=== PATIENT | female | born 1935 | race Caucasian/White ===

== ENCOUNTER 2017-11-14 17:28 | Observation (INO) | payer MEDICARE, SELFPAY ==
[2017-11-14 17:32] VITALS: BP 192/84; PULSE 68; RESP 16; TEMP 37; BMI 20.6
--- NOTE | 2017-11-14 18:00 | CT_ITS ---
STUDY: CT BRAIN WITHOUT CONTRAST REASON FOR EXAM: Female, 82 years old. Mental status changes RADIATION DOSAGE (If Supplied By Facility): CTDIvol = ( 44.99 ) mGy, DLP = ( 745.49 ) mGycm TECHNIQUE: Transaxial CT imaging of the brain was performed without administration of intravenous contrast material. Individualized dose optimization techniques were used for this CT. COMPARISON: December 02, [address] brain FINDINGS: Normal soft tissue structures. Normal calvarium. There is moderate cerebral atrophy with widening of the extra-axial spaces and ventricular dilatation. There are areas of decreased attenuation within the white matter tracts of the supratentorial brain, consistent with microvascular disease changes. Normal basal ganglia and thalami. Normal brainstem. Normal cerebellum. There is no intracranial hemorrhage. There are no findings of an acute ischemic infarction. Normal visualized paranasal sinuses. CT/Brain/Head without Contrast IMPRESSION: Chronic involutional changes of the brain. Electronically Signed: Shukri Nieto MD at 19:30 EDT , Service support ,
[2017-11-14 18:32] LABS: Hemoglobin 11.1 g/dl (12.0-15.0); Mean Corp Hgb Conc 31.7 g/gl (32-36); Mean Corpuscular Volume 85.2 fL (81-99); Mean Platelet Vol. 9.7 fl (6.2-12.0); Platelet Count 180 K/mm3 (150-450); RBC Distribution Width CV 14.3 % (11.6-14.6); Red Blood Count 4.11 M/mm3 (4.2-5.4); White Blood Count 4.4 K/mm3 (4.4-11.0)
[2017-11-14 18:34] LABS: Scan Indicated on CBC? Y/N NO
[2017-11-14 18:45] LABS: Anion Gap 9 (5-15); BUN 8 mg/dL (7-18); BUN/Creat Ratio 10.5 RATIO (10-20); Calcium,Total 8.9 mg/dL (8.5-10.1); Chloride 106 mmol/L (98-107); Creatinine, Serum 0.76 mg/dL (0.55-1.02); EST Glomerular Filtration Rate 77 mL/min (>60); Est Glom Filt Rate - Afr Amer 93 mL/min (>60); Glucose 89 mg/dL (74-106); Potassium 4.1 mmol/L (3.5-5.1); Sodium Level 141 mmol/L (136-145)
--- NOTE | 2017-11-14 19:13 | ED.VISSUMM ---
- ER Visit Summary Date of Service: 11/14/17 Chief Complaint: Failure to thrive and court ordered half-way placement History of Present Illness: The patient is a 82 F per the patient's daughter and niece she has dementia. She is also had CAD and CT. She is cardiac stent. Reportedly she is having trouble at home. They try to put her in a half-way which I think the patient refused. They now have a court order to put her in a half-way but they need a dementia unit. He has not been ill recently. Physical Examination: A female. No acute distress. Vital signs are stable afebrile. She does not look septic or toxic. HEENT exam unremarkable. Neck nontender no lymphadenopathy. Lungs clear to auscultation bilaterally. Heart regular rate and rhythm. Abdomen soft nontender. Moving all 4 extremities. Nontender no edema. Neurologically she is awake and alert. She does not know the day of the weeks that she does not keep track of it but she does know the month, year place and vice president global digital marketing. No slurred speech. No facial droop. She is moving all 4 extremities. There is no focal deficits. Test Results: CBC shows a normal white count. Hemoglobin 11. BMP was normal with a normal creatinine and gap. CT brain shows no acute abnormality. Chronic changes. Emergency Department Course and Treatment: I will speak to the hospitalist about admission for half-way placement. Treatment Plan: [] Disposition: Admission Impression: Failure to thrive Dementia Admission for half-way placement This note was generated with angelcam dictation software. It may contain incorrect words, spelling, and punctuation that were not noted in review of the chart prior to signing ED Disposition - Plan for ED Patient: Chief Complaint: Mental Health Referrals: Cydney Larkin MD [Primary Care Provider] -
--- NOTE | 2017-11-14 19:16 | ED.DCSUM_ITS ---
- ER Visit Summary Date of Service: 11/14/17 Chief Complaint: Failure to thrive and court ordered halfway placement History of Present Illness: The patient is a 82 F per the patient's daughter and niece she has dementia. She is also had CAD and OR. She is cardiac stent. Reportedly she is having trouble at home. They try to put her in a halfway which I think the patient refused. They now have a court order to put her in a halfway but they need a dementia unit. He has not been ill recently. Physical Examination: A female. No acute distress. Vital signs are stable afebrile. She does not look septic or toxic. HEENT exam unremarkable. Neck nontender no lymphadenopathy. Lungs clear to auscultation bilaterally. Heart regular rate and rhythm. Abdomen soft nontender. Moving all 4 extremities. Nontender no edema. Neurologically she is awake and alert. She does not know the day of the weeks that she does not keep track of it but she does know the month, year place and vice president of development. No slurred speech. No facial droop. She is moving all 4 extremities. There is no focal deficits. Test Results: CBC shows a normal white count. Hemoglobin 11. BMP was normal with a normal creatinine and gap. CT brain shows no acute abnormality. Chronic changes. Emergency Department Course and Treatment: I will speak to the hospitalist about admission for halfway placement. Treatment Plan: [] Disposition: Admission Impression: Failure to thrive Dementia Admission for halfway placement This note was generated with Earthmill dictation software. It may contain incorrect words, spelling, and punctuation that were not noted in review of the chart prior to signing ED Disposition - Plan for ED Patient: Chief Complaint: Mental Health Referrals: Cydney Larkin MD [Primary Care Provider] -
[2017-11-14 19:25] VITALS: BP 118/95; PULSE 72; RESP 18; TEMP 37.1; O2SAT 96
[2017-11-14 20:24] VITALS: BP 118/95; PULSE 72; RESP 18; TEMP 37.1; O2SAT 96
[2017-11-14 20:35] VITALS: BP 209/83; PULSE 63; RESP 18; O2SAT 95
--- NOTE | 2017-11-14 20:39 | ED.RN ---
DR. BOND AWARE OF PATIENT'S BP OF 209/86 PRIOR TO COMING TO THE FLOOR. PATIENT IS VERY UPSET SO THIS COULD CONTRIBUTE TO BP.
[2017-11-14 21:04] VITALS: BMI 19.1
--- NOTE | 2017-11-14 22:21 | HP.PCM_ITS ---
Problem List (1) Dementia Status: Acute Qualifiers: Dementia type: Alzheimer's disease Alzheimer's disease onset: unspecified onset Dementia behavioral disturbance: without behavioral disturbance Qualified Code(s): G30.9 - Alzheimer's disease, unspecified; F02.80 - Dementia in other diseases classified elsewhere without behavioral disturbance History of Present Illness Date of Admission: 11/14/17 Chief Complaint: Dementia The patient is a 82 year old F who was brought to the emergency room [facility] for placement into a prison facility due to dementia. This is a court order placement, patient was not able to get into a chcf without dementia facilities and so she was brought to the emergency room for admission to the hospital for placement. Patient's niece who is her POA, need her to the hospital, patient is confused and review of systems was not obtainable from the patient due to her dementia. Evaluation in the emergency room included routine labs which were unremarkable except for hemoglobin of 11.1, patient has CT of the brain which showed chronic involutional changes. Hospitalist service was called to admit the patient for placement to a nursing facility that has a dementia unit. 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 TECHNICIAN history Lives: Alone Smoking Status: Current every day smoker Tobacco Use: Cigarettes Alcohol: None Drugs: None - *Family History Maternal History Items: Heart Disease Paternal History Items: Cancer - Testicular cancer Review of Systems Comment: review of systems was unobtainable from the patient due to her dementia , information was obtained from the patient's POA who is in the room during the time of my examination VTE Information - Inpt Only VTE Present on Admission: No VTE Mechan Device Prophylaxis: None VTE Pharm Prophylaxis ordered?: Yes Patient Problems: Active and Suspected Problems Dementia (Acute) - Physical Exam General: Alert, No apparent distress, Well developed, Well nourished, Confused HEENT: Atraumatic, PERRLA, EOMI Oral: Moist Mucosa Neck: Supple, No JVD, Negative Carotid Bruits, No Nuchal Rigidity, Trachea Midline, Thyroid Normal Size and Texture Lungs: Clear to auscultation, Normal air movement, No rhonchi, No wheeze, No rales Cardiovascular: Regular rate, Regular Rhythm, Normal S1, Normal S2, No murmurs, No Ectopic Activity, PMI Normal, No rub noted, No Gallop Abdomen: Bowel Sounds Present, Soft, Non Tender, Non-Distended, No hernias noted Extremities: No clubbing, No cyanosis, No edema, Capillary Refill Less than 3 Seconds Skin: No rashes, No breakdown Neurological: Cranial nerves II-XII grossly intact, Neuro grossly intact, Muscle tone normal, Sensory exam intact to light touch and pain Psych/Mental Status: Delusions, - - Patient is alert but confused Vital Signs Temp Pulse Resp BP Pulse Ox 98.8 F 63 18 209/83 H 95 11/14/17 20:24 11/14/17 20:35 11/14/17 20:35 11/14/17 20:35 11/14/17 20:35 Oxygen Delivery Method Room Air Weight: 50.4 kg Body Mass Index (BMI) 19.1 Assessment/Plan Active and Suspected Problems Dementia (Acute) #1 Alzheimer's dementia-patient requires hospitalization for placement in a ch[facility], [facility] will be [facility], arrangements will be made by public health social worker for placement to a nursing facility that has a dementia unit #2 coronary artery disease #3 overactive bladder Code Visit OBSV E&M: 87409 Initial observation care L3
[2017-11-15 07:18] VITALS: BP 118/59; PULSE 74; RESP 16; TEMP 36.8; O2SAT 100
[2017-11-15] MEDS: Heparin Injection (Vial) 5,000 UNIT/ML VIAL 5000 UNIT SC (07:30)
--- NOTE | 2017-11-15 07:33 | PCM.PROGNOTE ---
Patient Problems: Active and Suspected Problems Dementia (Acute) Subjective: Patient is an 82-year-old female with a past medical history of dementia, tobacco dependence, personality disorder, CAD, COPD and hypertension who tented to the emergency department at [facility] on 11/14/2017 to be placed in a half-way with dementia wing. This is a court ordered placement. Vital signs at presentation to the emergency room are temperature 98.6, pulse rate 68, blood pressure 192/84, respiratory rate 16 and she was 96% saturated on room air. Lab was remarkable for a mildly decreased hemoglobin at 11.1 with normochromic normocytic indices and a normal RDW. CT brain showed no acute findings. There are chronic involutional changes. She is afebrile. Her pressure is somewhat erratic and ranges from 118/59 to 209/83. She is 100% saturated on room air today. She is intermittently agitated. Appears to be in no distress other than being agitated. She is very confused and can not even tell me where she is. - Physical Exam General: Alert, No apparent distress, Well developed, Confused HEENT: Atraumatic, PERRLA, EOMI, Normocephalic, - - ? mild exopthalmus Oral: Moist Mucosa Neck: Supple, No JVD, No Nodes, No Nuchal Rigidity, Trachea Midline Lungs: Clear to auscultation, No rhonchi, No wheeze, No rales Cardiovascular: Regular rate, Regular Rhythm, Normal S1, Normal S2, No rub noted, No Gallop Abdomen: Bowel Sounds Present, Soft, Non Tender, Non-Distended, - - No guarding with palpation and no grimacing Extremities: No clubbing, No cyanosis, No edema Skin: No rashes, No breakdown Neurological: Cranial nerves II-XII grossly intact, Neuro grossly intact - She is moving all extremities. she is able to follow simple commands. Oriented to person only. Psych/Mental Status: Agitated Vital Signs Temp Pulse Resp BP Pulse Ox 98.3 F 74 16 118/59 L 100 11/15/17 07:18 11/15/17 07:18 11/15/17 07:18 11/15/17 07:18 11/15/17 07:18 Oxygen Delivery Method Room Air Weight: 111 lb 1.808 oz Body Mass Index (BMI) 19.1 Intake and Output for Last 24 Hours 11/13/17 11/14/17 11/15/17 23:59 23:59 23:59 Intake Total 440 / 440 Balance 440 / 440 Medical Necessity - Tobacco Use Smoking Status: Current every day smoker Tobacco Use: Cigarettes Assessment/Plan Active and Suspected Problems Dementia (Acute) Impressions 1. dementia with behavioral disturbance - have not received the paperwork from her niece who is the POA stating that there is a court order to place her. Will initiate W/U to rule out the treatable causes of dementia 2. Personality disorder? or does she have another psychiatric diagnosis....will need to talk with her niece. Will get a geropsych consult 3. ? exopthalmus - check thyroid studies 4. Dysuria - UA ordered and the urine was obtained via straight cath 5. Tobacco dependence 6. CAD 7. COPD 8. N/N anemia with a nl RDW Discussed with the SW and geropsych will see her in the AM Niece is bringing in the paperwork for court ordered placement Start Seroquel 25 Q AM and 50 Q HS PRN Haldol for severe agitation TSH, B12, RPR, BRODERICK to rule out treatable causes of dementia Recheck lab in the AM Code Visit Inpatient E&M: 74806 Subs Hosp L2
--- NOTE | 2017-11-15 07:37 | PN_ITS ---
Patient Problems: Active and Suspected Problems Dementia (Acute) Subjective: Patient is an 82-year-old female with a past medical history of dementia, tobacco dependence, personality disorder, CAD, COPD and hypertension who tented to the emergency department at [facility] on 11/14/2017 to be placed in a intermediate with dementia wing. This is a court ordered placement. Vital signs at presentation to the emergency room are temperature 98.6, pulse rate 68, blood pressure 192/84, respiratory rate 16 and she was 96% saturated on room air. Lab was remarkable for a mildly decreased hemoglobin at 11.1 with normochromic normocytic indices and a normal RDW. CT brain showed no acute findings. There are chronic involutional changes. She is afebrile. Her pressure is somewhat erratic and ranges from 118/59 to 209 /83. She is 100% saturated on room air today. She is intermittently agitated. Appears to be in no distress other than being agitated. She is very confused and can not even tell me where she is. - Physical Exam General: Alert, No apparent distress, Well developed, Confused HEENT: Atraumatic, PERRLA, EOMI, Normocephalic, - - ? mild exopthalmus Oral: Moist Mucosa Neck: Supple, No JVD, No Nodes, No Nuchal Rigidity, Trachea Midline Lungs: Clear to auscultation, No rhonchi, No wheeze, No rales Cardiovascular: Regular rate, Regular Rhythm, Normal S1, Normal S2, No rub noted , No Gallop Abdomen: Bowel Sounds Present, Soft, Non Tender, Non-Distended, - - No guarding with palpation and no grimacing Extremities: No clubbing, No cyanosis, No edema Skin: No rashes, No breakdown Neurological: Cranial nerves II-XII grossly intact, Neuro grossly intact - She is moving all extremities. she is able to follow simple commands. Oriented to person only. Psych/Mental Status: Agitated Vital Signs Temp Pulse Resp BP Pulse Ox 98.3 F 74 16 118/59 L 100 11/15/17 07:18 11/15/17 07:18 11/15/17 07:18 11/15/17 07:18 11/15/17 07:18 Oxygen Delivery Method Room Air Weight: 111 lb 1.808 oz Body Mass Index (BMI) 19.1 Intake and Output for Last 24 Hours 11/13/17 11/14/17 11/15/17 23:59 23:59 23:59 Intake Total 440 / 440 Balance 440 / 440 Medical Necessity - Tobacco Use Smoking Status: Current every day smoker Tobacco Use: Cigarettes Assessment/Plan Active and Suspected Problems Dementia (Acute) Impressions 1. dementia with behavioral disturbance - have not received the paperwork from her niece who is the POA stating that there is a court order to place her. Will initiate W/U to rule out the treatable causes of dementia 2. Personality disorder? or does she have another psychiatric diagnosis....will need to talk with her niece. Will get a geropsych consult 3. ? exopthalmus - check thyroid studies 4. Dysuria - UA ordered and the urine was obtained via straight cath 5. Tobacco dependence 6. CAD 7. COPD 8. N/N anemia with a nl RDW Discussed with the SW and geropsych will see her in the AM Niece is bringing in the paperwork for court ordered placement Start Seroquel 25 Q AM and 50 Q HS PRN Haldol for severe agitation TSH, B12, RPR, BRODERICK to rule out treatable causes of dementia Recheck lab in the AM Code Visit Inpatient E&M: 99285 Subs Hosp L2
[2017-11-15 08:51] VITALS: BP 175/97; PULSE 88; RESP 18; TEMP 36.8; O2SAT 93
[2017-11-15 08:53] VITALS: PULSE 100
--- NOTE | 2017-11-15 12:00 | CASEMGMT ---
Addendum entered by Syeda Mehta 11/15/17 12:56: HUGO received call from Brandt [phone] at [facility] asking about pt. HUGO informed her of pt's admit into hospital and that [facility] has been consulted. HUGO will continue to update Brandt when updates are available. Original Note: Social Work Note Per ED note pt came into the hospital last night after refusing to be placed at a nursing facility. Per ED notes pt's niece is POA and there is a court order that pt needs to be placed. It should be noted that at this time, the court order has not been physically brought into the hospital yet. Charge Nurse Dee states that the ED was recommending that pt be seen by [facility]. HUGO spoke with Dr. Ortega and she is agreeable to pt being seen by [facility] for evaluation. HUGO placed call to pt's niece Michaela asking if pt could been seen by [facility]. Michaela, pt's niece, POA gave approval for pt to be seen by [facility]. HUGO verbally gave Michaela list of [facility] units and per Michaela, the closest facility to [place] is the one that she would like this worker to try. HUGO also encouraged Michaela to bring in a copy of the court order to the hospital. Michaela states that she will bring in the court order. [facility] in [place] is about an hour from [place] and the closest. HUGO placed call to Lizbeth Longoria and left a message regarding referral. HUGO left message for Lizbeth asking if someone could come evaluate pt. HUGO is waiting for call back from Lizbeth to see if pt can be evaluated. Plan: TBD, possible placement at [facility] Syeda Mehta TOLL TEST WORKER, OPERATIONAL METEOROLOGIST
[2017-11-15 14:12] VITALS: BP 157/75; PULSE 80; RESP 18; TEMP 37.2; O2SAT 96
[2017-11-15] MEDS: Haloperidol Lactate 5 MG/ML Vial 4 MG IM (16:26)
--- NOTE | 2017-11-15 17:14 | CASEMGMT ---
Addendum entered by Syeda Mehta 11/15/17 17:37: HUGO informed Charge Nurse Dee that pt's niece is suppose to be coming into the hospital tonight and to remind her that the hospital needs the court order, guardianship and POA papers. Original Note: Social Work Note HUGO didn't hear back from Lizbeth with [facility]. HUGO called [facility] and got the number for Elli [phone]. HUGO placed call to [place] and got Desire who states that Elli's phone is forwarded to her. HUGO gave referral to Desire. Desire states that she will call pt's niece to confirm that she is ok with the referral. HUGO received call back from Desire with [facility] stating that the niece is ok with referral and that the niece would like to meet with [facility], this SW and pt tomorrow to discuss discharge options. Desire states that the meeting is set for 9:00am tomorrow. HUGO placed call to pt's niece Michaela who was unable to answer. HUGO informed front counter attendant that if pt's niece Michaela shows up to confirm that she needs to bring court order paperwork, guardianship papers, POA papers to hospital. Plan: TBD, pt meeting with [facility] tomorrow Syeda Mehta CANDY CUTTER HAND, EQUIPMENT SUPERINTENDENT
[2017-11-15 17:35] LABS: Mucous, Urine 0 SEEN /hpf (<or=2+)
--- NOTE | 2017-11-15 17:37 | PCA ---
katie brought her legal paper work in. Made copies and placed in chart.
[2017-11-15 18:12] LABS: Color, Urine Straw (Yellow); Glucose, Dipstick Normal (Normal); Ketone-Dipstick Negative (Negative); Leukocyte Esterase-Dipstick 500 /ul (Negative); Nitrite-Dipstick Positive (Negative); Occult Blood-Urine 25 /ul (Negative); Protein-Dipstick Negative (Negative); Specific Gravity, Urine 1.005 (1.002-1.030); Urine Bilirubin Dipstick Negative (Negative); Urine Clarity Cloudy (Clear); Urine Urobilinogen Normal (Normal)
[2017-11-15 18:36] LABS: Squamous Epithelial Cells - UA 0-5 SEEN /hpf (5-10)
[2017-11-15 18:37] LABS: Bacteria 2+ /hpf (None Seen)
[2017-11-15 18:39] LABS: Red Blood Cells-Urine 0-5 SEEN /hpf (0-5)
[2017-11-15 18:40] LABS: White Blood Cells 5-10 SEEN /hpf (0-5)
[2017-11-15 19:21] LABS: Free T3 2.8 pg/mL (2.18-3.98); T4 Total, Thyroxin 8.9 ug/dL (4.8-13.9); Thyroid Stim Hormone (TSH) 1.44 uIU/mL (0.358-3.74)
[2017-11-15 22:00] VITALS: BP 152/82; PULSE 89; RESP 16; TEMP 36.7; O2SAT 97
[2017-11-15] MEDS: QUEtiapine 25 MG Tablet 50 MG PO (22:22)
[2017-11-16 04:00] VITALS: BP 159/75; PULSE 99; RESP 16; TEMP 36.6; O2SAT 95
[2017-11-16 05:02] LABS: Rapid Plasmin Reagin (RPR) NONREACTIVE (NONREACTIVE)
--- NOTE | 2017-11-16 05:55 | EKG12_ITS ---
Test Reason : ABNORMAL EKG Blood Pressure : / mmHG Vent. Rate : 075 BPM Atrial Rate : 075 BPM P-R Int : 144 ms QRS Dur : 074 ms QT Int : 384 ms P-R-T Axes : 075 073 066 degrees QTc Int : 428 ms Normal sinus rhythm Normal ECG When compared with ECG of 03-DEC-2012 05:00, No significant change was found Confirmed by YVES HARPER ([id number]), desk editor ELEANOR HAM ([id number]) on 11/27/2017 4:14:56 PM Referred By: NERY Confirmed By:YVES HARPER
[2017-11-16 06:13] LABS: Absolute Lymphocyte Count 1.29 X10^3/ul (0.83-4.51); Absolute Neutrophil Count 2.2 X10^3/uL (2.0-7.7); Basophil# 0.01 X10^3/uL; Basophil% 0.2 % (0-1); Eosinophil# 0.21 X10^3/uL; Eosinophils% 5.1 % (0-5); Hematocrit 34.1 % (37-47); Hemoglobin 10.8 g/dl (12.0-15.0); Lymphocyte # 1.29 X10^3/ul (4.0); Lymphocyte % 31.3 % (19-41); Mean Corp Hgb Conc 31.7 g/gl (32-36); Mean Corpuscular Volume 85.3 fL (81-99); Mean Platelet Vol. 9.5 fl (6.2-12.0); Monocyte# 0.43 X10^3/uL; Monocyte% 10.4 % (0-10); Neutrophil # 2.18 X10^3/uL (2.7-7.7); Platelet Count 164 K/mm3 (150-450); RBC Distribution Width CV 14.2 % (11.6-14.6); RBC Distribution Width SD 44.6 fl (35.1-43.9); White Blood Count 4.1 K/mm3 (4.4-11.0)
[2017-11-16 06:14] LABS: POSITIVE COUNT NO; POSITIVE DIFFERENTIAL NO; POSITIVE MORPHOLOGY NO
[2017-11-16 06:26] LABS: ALB/GLOB Ratio 1.2 RATIO (0.9-2.4); AST(SGOT) 18 U/L (15-37); Alanine Aminotransfer ALT/SGPT 9 U/L (13-56); Albumin, Serum 3.3 g/dL (3.2-5.0); Alkaline Phosphatase 76 U/L (45-117); Anion Gap 8 (5-15); BUN 6 mg/dL (7-18); BUN/Creat Ratio 9.1 RATIO (10-20); Calcium,Total 8.6 mg/dL (8.5-10.1); Chloride 105 mmol/L (98-107); Creatinine, Serum 0.66 mg/dL (0.55-1.02); EST Glomerular Filtration Rate 91 mL/min (>60); Est Glom Filt Rate - Afr Amer 110 mL/min (>60); Estimated Creatinine Clearance 33.92 ml/min; Globulin 2.7 g/dL (2.2-4.2); Glucose 83 mg/dL (74-106); Phosphorus 3.6 mg/dL (2.5-4.9); Potassium 3.6 mmol/L (3.5-5.1); Sodium Level 140 mmol/L (136-145)
--- NOTE | 2017-11-16 06:52 | PCM.PROGNOTE ---
Patient Problems: Active and Suspected Problems Dementia (Acute) Subjective: Afebrile, vital signs stable. The blood pressure is mildly increased but the patient refused metoprolol. She has been refusing many of her medications but did agree to take 50 mg of Seroquel at at bedtime. Lab today shows a hemoglobin of 10.8 which is stable, white blood cell count of 4.1 and normal platelets. Electrolytes are within normal limits and the BUN is 6 with a creatinine of 0.66. LFTs are unremarkable. TSH, T4 and T3 are within normal limits. B12 is pending. RPR is negative. BRODERICK is pending. The urine analysis showed 5-10 white blood cells and was nitrite positive. Culture is pending. Only required Haldol once yesterday. Disha to evaluate today. - Physical Exam Vital Signs Temp Pulse Resp BP Pulse Ox 97.9 F 99 16 159/75 H 95 11/16/17 04:00 11/16/17 04:00 11/16/17 04:00 11/16/17 04:00 11/16/17 04:00 Oxygen Delivery Method Room Air Weight: 111 lb 1.808 oz Body Mass Index (BMI) 19.1 Intake and Output for Last 24 Hours 11/14/17 11/15/17 11/16/17 23:59 23:59 23:59 Intake Total 440 / 440 580 / 580 Balance 440 / 440 580 / 580 Laboratory Tests Past 24 Hrs 11/15/17 11/15/17 11/16/17 17:15 18:17 05:20 WBC RBC Hgb Hct MCV MCH MCHC RDW RDW Differential Plt Count MPV Immature Gran % (Auto) Neut % (Auto) Lymph % (Auto) Glynn % (Auto) Eos % (Auto) Baso % (Auto) Absolute Neuts (auto) Absolute Lymphs (auto) Total Counted Sodium Potassium Chloride Carbon Dioxide Anion Gap BUN Creatinine Estim Creat Clear Calc Est GFR (MDRD) Af Amer Est GFR (MDRD) Non-Af BUN/Creatinine Ratio Glucose Calcium Phosphorus Magnesium Total Bilirubin AST ALT Alkaline Phosphatase Total Protein Albumin Globulin Albumin/Globulin Ratio Vitamin B12 Pending Urine Color Straw Urine Clarity Cloudy Urine pH 7.0 Ur Specific [place] 1.005 Urine Protein Negative Urine Glucose (UA) Normal Urine Ketones Negative Urine Occult Blood 25 H Urine Nitrite Positive H Urine Bilirubin Negative Urine Urobilinogen Normal Ur Leukocyte Esterase 500 H Urine RBC 0-5 SEEN Urine WBC 5-10 SEEN Ur Squamous Epith Cells 0-5 SEEN Urine Bacteria 2+ Urine Mucus 0 SEEN BRODERICK Screen TIFFANIE-1 Antibody SS-A/Ro IgG Antibody SS-B/La IgG Antibody Sm (Longoria) Antibody MASTIC FLOOR LAYER Antibody Scl-70 Scleroderma Ab Double Strand DNA Ab Centromere B Antibody RPR NONREACTIVE 11/16/17 11/16/17 11/16/17 05:20 05:20 05:20 WBC 4.1 L RBC 4.00 L Hgb 10.8 L Hct 34.1 L MCV 85.3 MCH 27.0 MCHC 31.7 L RDW 14.2 RDW Differential 44.6 H Plt Count 164 MPV 9.5 Immature Gran % (Auto) 0.000 Neut % (Auto) 53.0 Lymph % (Auto) 31.3 Glynn % (Auto) 10.4 H Eos % (Auto) 5.1 H Baso % (Auto) 0.2 Absolute Neuts (auto) 2.2 Absolute Lymphs (auto) 1.29 Total Counted Not Reportable Sodium 140 Potassium 3.6 Chloride 105 Carbon Dioxide 27.0 Anion Gap 8 BUN 6 L Creatinine 0.66 Estim Creat Clear Calc 33.92 Est GFR (MDRD) Af Amer 110 Est GFR (MDRD) Non-Af 91 BUN/Creatinine Ratio 9.1 L Glucose 83 Calcium 8.6 Phosphorus 3.6 Magnesium 2.0 Total Bilirubin 0.50 AST 18 ALT 9 L Alkaline Phosphatase 76 Total Protein 6.0 L Albumin 3.3 Globulin 2.7 Albumin/Globulin Ratio 1.2 Vitamin B12 Urine Color Urine Clarity Urine pH Ur Specific [place] Urine Protein Urine Glucose (UA) Urine Ketones Urine Occult Blood Urine Nitrite Urine Bilirubin Urine Urobilinogen Ur Leukocyte Esterase Urine RBC Urine WBC Ur Squamous Epith Cells Urine Bacteria Urine Mucus BRODERICK Screen Pending TIFFANIE-1 Antibody Pending SS-A/Ro IgG Antibody Pending SS-B/La IgG Antibody Pending Sm (Longoria) Antibody Pending MASTIC FLOOR LAYER Antibody Pending Scl-70 Scleroderma Ab Pending Double Strand DNA Ab Pending Centromere B Antibody Pending RPR Medical Necessity - Tobacco Use Smoking Status: Current every day smoker Tobacco Use: Cigarettes Assessment/Plan Active and Suspected Problems Dementia (Acute)
--- NOTE | 2017-11-16 06:56 | PN_ITS ---
Patient Problems: Active and Suspected Problems Dementia (Acute) Subjective: Afebrile, vital signs stable. The blood pressure is mildly increased but the patient refused metoprolol. She has been refusing many of her medications but did agree to take 50 mg of Seroquel at at bedtime. Lab today shows a hemoglobin of 10.8 which is stable, white blood cell count of 4.1 and normal platelets. Electrolytes are within normal limits and the BUN is 6 with a creatinine of 0.66. LFTs are unremarkable. TSH, T4 and T3 are within normal limits. B12 is pending. RPR is negative. BRODERICK is pending. The urine analysis showed 5-10 white blood cells and was nitrite positive. Culture is pending. Only required Haldol once yesterday. Disha to evaluate today. - Physical Exam Vital Signs Temp Pulse Resp BP Pulse Ox 97.9 F 99 16 159/75 H 95 11/16/17 04:00 11/16/17 04:00 11/16/17 04:00 11/16/17 04:00 11/16/17 04:00 Oxygen Delivery Method Room Air Weight: 111 lb 1.808 oz Body Mass Index (BMI) 19.1 Intake and Output for Last 24 Hours 11/14/17 11/15/17 11/16/17 23:59 23:59 23:59 Intake Total 440 / 440 580 / 580 Balance 440 / 440 580 / 580 Laboratory Tests Past 24 Hrs 11/15/17 11/15/17 11/16/17 17:15 18:17 05:20 WBC RBC Hgb Hct MCV MCH MCHC RDW RDW Differential Plt Count MPV Immature Gran % (Auto) Neut % (Auto) Lymph % (Auto) [place] % (Auto) Eos % (Auto) Baso % (Auto) Absolute Neuts (auto) Absolute Lymphs (auto) Total Counted Sodium Potassium Chloride Carbon Dioxide Anion Gap BUN Creatinine Estim Creat Clear Calc Est GFR (MDRD) Af Amer Est GFR (MDRD) Non-Af BUN/Creatinine Ratio Glucose Calcium Phosphorus Magnesium Total Bilirubin AST ALT Alkaline Phosphatase Total Protein Albumin Globulin Albumin/Globulin Ratio Vitamin B12 Pending Urine Color Straw Urine Clarity Cloudy Urine pH 7.0 Ur Specific [place] 1.005 Urine Protein Negative Urine Glucose (UA) Normal Urine Ketones Negative Urine Occult Blood 25 H Urine Nitrite Positive H Urine Bilirubin Negative Urine Urobilinogen Normal Ur Leukocyte Esterase 500 H Urine RBC 0-5 SEEN Urine WBC 5-10 SEEN Ur Squamous Epith Cells 0-5 SEEN Urine Bacteria 2+ Urine Mucus 0 SEEN BRODERICK Screen TIFFANIE-1 Antibody SS-A/Ro IgG Antibody SS-B/La IgG Antibody Sm ([place]) Antibody CREDIT AND COLLECTIONS ANALYST Antibody Scl-70 Scleroderma Ab Double Strand DNA Ab Centromere B Antibody RPR NONREACTIVE 11/16/17 11/16/17 11/16/17 05:20 05:20 05:20 WBC 4.1 L RBC 4.00 L Hgb 10.8 L Hct 34.1 L MCV 85.3 MCH 27.0 MCHC 31.7 L RDW 14.2 RDW Differential 44.6 H Plt Count 164 MPV 9.5 Immature Gran % (Auto) 0.000 Neut % (Auto) 53.0 Lymph % (Auto) 31.3 [place] % (Auto) 10.4 H Eos % (Auto) 5.1 H Baso % (Auto) 0.2 Absolute Neuts (auto) 2.2 Absolute Lymphs (auto) 1.29 Total Counted Not Reportable Sodium 140 Potassium 3.6 Chloride 105 Carbon Dioxide 27.0 Anion Gap 8 BUN 6 L Creatinine 0.66 Estim Creat Clear Calc 33.92 Est GFR (MDRD) Af Amer 110 Est GFR (MDRD) Non-Af 91 BUN/Creatinine Ratio 9.1 L Glucose 83 Calcium 8.6 Phosphorus 3.6 Magnesium 2.0 Total Bilirubin 0.50 AST 18 ALT 9 L Alkaline Phosphatase 76 Total Protein 6.0 L Albumin 3.3 Globulin 2.7 Albumin/Globulin Ratio 1.2 Vitamin B12 Urine Color Urine Clarity Urine pH Ur Specific [place] Urine Protein Urine Glucose (UA) Urine Ketones Urine Occult Blood Urine Nitrite Urine Bilirubin Urine Urobilinogen Ur Leukocyte Esterase Urine RBC Urine WBC Ur Squamous Epith Cells Urine Bacteria Urine Mucus BRODERICK Screen Pending TIFFANIE-1 Antibody Pending SS-A/Ro IgG Antibody Pending SS-B/La IgG Antibody Pending Sm ([place]) Antibody Pending CREDIT AND COLLECTIONS ANALYST Antibody Pending Scl-70 Scleroderma Ab Pending Double Strand DNA Ab Pending Centromere B Antibody Pending RPR Medical Necessity - Tobacco Use Smoking Status: Current every day smoker Tobacco Use: Cigarettes Assessment/Plan Active and Suspected Problems Dementia (Acute)
[2017-11-16 08:29] VITALS: BP 158/93; PULSE 76; RESP 16; TEMP 36.5; O2SAT 97
[2017-11-16 08:31] VITALS: PULSE 76
[2017-11-16] MEDS: Metoprolol Tartrate 25 MG Tablet PO (08:31)
[2017-11-16] MEDS: Tolterodine Tartrate 4 MG CAP.SA PO (08:32)
[2017-11-16] MEDS: QUEtiapine 25 MG Tablet PO (08:34)
[2017-11-16 08:38] VITALS: PULSE 9
[2017-11-16] MEDS: 0.9% NaCl Peripheral Flush Adult/Peds IV (09:28)
[2017-11-16] MEDS: Ceftriaxone 1 GM/50 ML BAG IV (09:29)
[2017-11-16 10:00] LABS: Vitamin B12 250 pg/mL (211-911)
--- NOTE | 2017-11-16 11:16 | CASEMGMT ---
Addendum entered by Syeda Mehta 11/16/17 13:21: Social Work faxed discharge paperwork to [facility]. It should be noted that pt's daughter and niece were present today to talk with [facility] and they are aware of discharge plans. Pt discharged to [facility] in [place] today. Syeda HOLLIDAY, DEFECT CUTTER Original Note: Social Work Note [facility] from [facility] in [place] in to evaluate pt today. Susy Velasquez with [facility] they are able to accept pt today. Susy states that they have an ambulance copy that is able to transport pt and she will call to set up transportation. SW informed Dr. Ortega that they can accept pt and that they need medication list and scripts and discharge instructions for pt. Plan: Discharge to [facility] in [place] Syeda HOLLIDAY, DEFECT CUTTER
--- NOTE | 2017-11-16 11:51 | PCM.DC.SUM ---
Discharge Date and Diagnosis - Problem List Patient Problems: Active and Suspected Problems Dementia (Acute) Date of Admission: 11/14/17 Date of Discharge: 11/16/17 - Primary Discharge Diagnosis Active and Suspected Problems Dementia (Acute) with behavioral disturbance Reported hx of a personality disorder UTI/cystitis - Secondary Discharge Diagnosis Chronic Problems Tobacco user (Chronic) Personality disorder (Chronic) CAD (coronary artery disease) (Chronic) Chronic obstructive lung disease (Chronic) Benign hypertension (Chronic) N/N anemia with nl RDW - etiology unknown Hospital Course and Treatment Imaging Results: Clinical Impression(s) from Imaging Studies Brain CT 11/14/17 18:00 IMPRESSION: Chronic involutional changes of the brain. Electronically Signed: Shukri Nieto MD at 19:30 EDT , Service support , Laboratory Tests 11/14/17 11/14/17 11/14/17 18:17 18:17 18:17 WBC 4.4 RBC 4.11 L Hgb 11.1 L Hct 35.0 L MCV 85.2 MCH 27.0 MCHC 31.7 L RDW 14.3 RDW Differential 44.0 H Plt Count 180 MPV 9.7 Immature Gran % (Auto) Neut % (Auto) Lymph % (Auto) [place] % (Auto) Eos % (Auto) Baso % (Auto) Absolute Neuts (auto) Absolute Lymphs (auto) Total Counted Sodium 141 Potassium 4.1 Chloride 106 Carbon Dioxide 26.0 Anion Gap 9 BUN 8 Creatinine 0.76 Estim Creat Clear Calc 36.70 Est GFR (MDRD) Af Amer 93 Est GFR (MDRD) Non-Af 77 BUN/Creatinine Ratio 10.5 Glucose 89 Calcium 8.9 Phosphorus Magnesium Total Bilirubin AST ALT Alkaline Phosphatase Total Protein Albumin Globulin Albumin/Globulin Ratio Vitamin B12 TSH 1.44 Thyroxine (T4) 8.9 Free T3 pg/dL 2.8 Urine Color Urine Clarity Urine pH Ur Specific [place] Urine Protein Urine Glucose (UA) Urine Ketones Urine Occult Blood Urine Nitrite Urine Bilirubin Urine Urobilinogen Ur Leukocyte Esterase Urine RBC Urine WBC Ur Squamous Epith Cells Urine Bacteria Urine Mucus RPR 11/15/17 11/15/17 11/16/17 17:15 18:17 05:20 WBC RBC Hgb Hct MCV MCH MCHC RDW RDW Differential Plt Count MPV Immature Gran % (Auto) Neut % (Auto) Lymph % (Auto) [place] % (Auto) Eos % (Auto) Baso % (Auto) Absolute Neuts (auto) Absolute Lymphs (auto) Total Counted Sodium Potassium Chloride Carbon Dioxide Anion Gap BUN Creatinine Estim Creat Clear Calc Est GFR (MDRD) Af Amer Est GFR (MDRD) Non-Af BUN/Creatinine Ratio Glucose Calcium Phosphorus Magnesium Total Bilirubin AST ALT Alkaline Phosphatase Total Protein Albumin Globulin Albumin/Globulin Ratio Vitamin B12 250 TSH Thyroxine (T4) Free T3 pg/dL Urine Color Straw Urine Clarity Cloudy Urine pH 7.0 Ur Specific [place] 1.005 Urine Protein Negative Urine Glucose (UA) Normal Urine Ketones Negative Urine Occult Blood 25 H Urine Nitrite Positive H Urine Bilirubin Negative Urine Urobilinogen Normal Ur Leukocyte Esterase 500 H Urine RBC 0-5 SEEN Urine WBC 5-10 SEEN Ur Squamous Epith Cells 0-5 SEEN Urine Bacteria 2+ Urine Mucus 0 SEEN RPR NONREACTIVE 11/16/17 11/16/17 05:20 05:20 WBC 4.1 L RBC 4.00 L Hgb 10.8 L Hct 34.1 L MCV 85.3 MCH 27.0 MCHC 31.7 L RDW 14.2 RDW Differential 44.6 H Plt Count 164 MPV 9.5 Immature Gran % (Auto) 0.000 Neut % (Auto) 53.0 Lymph % (Auto) 31.3 [place] % (Auto) 10.4 H Eos % (Auto) 5.1 H Baso % (Auto) 0.2 Absolute Neuts (auto) 2.2 Absolute Lymphs (auto) 1.29 Total Counted Not Reportable Sodium 140 Potassium 3.6 Chloride 105 Carbon Dioxide 27.0 Anion Gap 8 BUN 6 L Creatinine 0.66 Estim Creat Clear Calc 33.92 Est GFR (MDRD) Af Amer 110 Est GFR (MDRD) Non-Af 91 BUN/Creatinine Ratio 9.1 L Glucose 83 Calcium 8.6 Phosphorus 3.6 Magnesium 2.0 Total Bilirubin 0.50 AST 18 ALT 9 L Alkaline Phosphatase 76 Total Protein 6.0 L Albumin 3.3 Globulin 2.7 Albumin/Globulin Ratio 1.2 Vitamin B12 TSH Thyroxine (T4) Free T3 pg/dL Urine Color Urine Clarity Urine pH Ur Specific [place] Urine Protein Urine Glucose (UA) Urine Ketones Urine Occult Blood Urine Nitrite Urine Bilirubin Urine Urobilinogen Ur Leukocyte Esterase Urine RBC Urine WBC Ur Squamous Epith Cells Urine Bacteria Urine Mucus RPR none Operations: None Procedures: None Summary of Care Provided: The patient is an 82-year-old female with a past medical history of dementia, tobacco dependence, personality disorder, CAD, COPD and hypertension who presented to the emergency department at [facility] on 11/14/2017 to be placed in a fpc with a dementia wing. Her niece was recently appointed her guardian because she is unable to care for herself and is not competent to make decisions regarding her health care. Vital signs at presentation to the emergency room were temperature 98.6, pulse rate 68, blood pressure 192/84, respiratory rate 16 and she was 96% saturated on room air. Lab was remarkable for a mildly decreased hemoglobin at 11.1 with normochromic normocytic indices and a normal RDW. CT brain showed no acute findings. There were chronic involutional changes. She c/o dysuria following admission and a urine sample was obtained via straight cath. The UA showed 5-10 white blood cells per high-powered field with 0-5 squamous epithelial cells, 2+ bacteria and positive nitrites. She was started on Rocephin 1 GM IV daily and received 2 doses while in the hospital. Urine culture is pending. Lab was done to evaluate her for treatable causes of dementia and the TSH, T4 and T3 were within normal limits. B12 is normal at 250. The RPR was negative and an ammonia was within normal limits. BRODERICK is still pending at the time of discharge. She was quite agitated on 11/15 and would not take her meds or cooperate with nursing. She received a one time dose of Haldol 4 mg IM and she was much more calm. she was started on Seroquel 50 mg at HS and 25 mg Q AM. She slept well on the night of 11/15 and the following morning she was alert and took her medications. BP has been mildly increased but, she had been refusing Metoprolol. She was evaluated on 11/16 for admission to [facility] in [place] and has been accepted. She was discharged on Cefdinir 300 mg BID to complete 7 days of treatment. The urine culture should be available on 11/17 or 11/18. Home Medications: Medications to take at Discharge Solifenacin Succinate [Vesicare] 10 mg PO DAILY 11/14/17 Acetaminophen [Tylenol Tablet] 650 mg PO Q6H PRN PRN tablet 11/16/17 Cefdinir 300 mg PO BID #10 cap 11/16/17 Metoprolol(XL)Succ [Toprol Xl (Beta Darrion)] 25 mg PO DAILY #1 tablet 11/16/17 Nicotine [Nicoderm] 14 mg TRANSDERM. DAILY patch 11/16/17 Quetiapine Fumarate [Seroquel] 25 mg PO DAILY tablet 11/16/17 Quetiapine Fumarate [Seroquel] 50 mg PO QHS tablet 11/16/17 Following Prescrptions Were Given to Patient: Metoprolol(XL)Succ [Toprol Xl (Beta Darrion)] 25 mg PO DAILY #1 tablet Cefdinir 300 mg PO BID #10 cap Primary Care Physician: Cydney Larkin MD [Primary Care Provider] - Disposition: Acute care Hospital Minutes spent on discharge:: 40 Patient Condition:: Stable Medical Necessity - Tobacco Use Smoking Status: Current every day smoker Tobacco Use: Cigarettes Meaningful Use Info Meaningful Use Diagnoses (Choose all that apply): None applicable Code Visit Inpatient E&M: 49238 Disch Hosp
--- NOTE | 2017-11-16 12:04 | DS.PCM_ITS ---
Discharge Date and Diagnosis - Problem List Patient Problems: Active and Suspected Problems Dementia (Acute) Date of Admission: 11/14/17 Date of Discharge: 11/16/17 - Primary Discharge Diagnosis Active and Suspected Problems Dementia (Acute) with behavioral disturbance Reported hx of a personality disorder UTI/cystitis - Secondary Discharge Diagnosis Chronic Problems Tobacco user (Chronic) Personality disorder (Chronic) CAD (coronary artery disease) (Chronic) Chronic obstructive lung disease (Chronic) Benign hypertension (Chronic) N/N anemia with nl RDW - etiology unknown Hospital Course and Treatment Imaging Results: Clinical Impression(s) from Imaging Studies Brain CT 11/14/17 18:00 IMPRESSION: Chronic involutional changes of the brain. Electronically Signed: Shukri Nieto MD at 19:30 EDT , Service support , Laboratory Tests 11/14/17 11/14/17 11/14/17 18:17 18:17 18:17 WBC 4.4 RBC 4.11 L Hgb 11.1 L Hct 35.0 L MCV 85.2 MCH 27.0 MCHC 31.7 L RDW 14.3 RDW Differential 44.0 H Plt Count 180 MPV 9.7 Immature Gran % (Auto) Neut % (Auto) Lymph % (Auto) [place] % (Auto) Eos % (Auto) Baso % (Auto) Absolute Neuts (auto) Absolute Lymphs (auto) Total Counted Sodium 141 Potassium 4.1 Chloride 106 Carbon Dioxide 26.0 Anion Gap 9 BUN 8 Creatinine 0.76 Estim Creat Clear Calc 36.70 Est GFR (MDRD) Af Amer 93 Est GFR (MDRD) Non-Af 77 BUN/Creatinine Ratio 10.5 Glucose 89 Calcium 8.9 Phosphorus Magnesium Total Bilirubin AST ALT Alkaline Phosphatase Total Protein Albumin Globulin Albumin/Globulin Ratio Vitamin B12 TSH 1.44 Thyroxine (T4) 8.9 Free T3 pg/dL 2.8 Urine Color Urine Clarity Urine pH Ur Specific [place] Urine Protein Urine Glucose (UA) Urine Ketones Urine Occult Blood Urine Nitrite Urine Bilirubin Urine Urobilinogen Ur Leukocyte Esterase Urine RBC Urine WBC Ur Squamous Epith Cells Urine Bacteria Urine Mucus RPR 11/15/17 11/15/17 11/16/17 17:15 18:17 05:20 WBC RBC Hgb Hct MCV MCH MCHC RDW RDW Differential Plt Count MPV Immature Gran % (Auto) Neut % (Auto) Lymph % (Auto) [place] % (Auto) Eos % (Auto) Baso % (Auto) Absolute Neuts (auto) Absolute Lymphs (auto) Total Counted Sodium Potassium Chloride Carbon Dioxide Anion Gap BUN Creatinine Estim Creat Clear Calc Est GFR (MDRD) Af Amer Est GFR (MDRD) Non-Af BUN/Creatinine Ratio Glucose Calcium Phosphorus Magnesium Total Bilirubin AST ALT Alkaline Phosphatase Total Protein Albumin Globulin Albumin/Globulin Ratio Vitamin B12 250 TSH Thyroxine (T4) Free T3 pg/dL Urine Color Straw Urine Clarity Cloudy Urine pH 7.0 Ur Specific [place] 1.005 Urine Protein Negative Urine Glucose (UA) Normal Urine Ketones Negative Urine Occult Blood 25 H Urine Nitrite Positive H Urine Bilirubin Negative Urine Urobilinogen Normal Ur Leukocyte Esterase 500 H Urine RBC 0-5 SEEN Urine WBC 5-10 SEEN Ur Squamous Epith Cells 0-5 SEEN Urine Bacteria 2+ Urine Mucus 0 SEEN RPR NONREACTIVE 11/16/17 11/16/17 05:20 05:20 WBC 4.1 L RBC 4.00 L Hgb 10.8 L Hct 34.1 L MCV 85.3 MCH 27.0 MCHC 31.7 L RDW 14.2 RDW Differential 44.6 H Plt Count 164 MPV 9.5 Immature Gran % (Auto) 0.000 Neut % (Auto) 53.0 Lymph % (Auto) 31.3 [place] % (Auto) 10.4 H Eos % (Auto) 5.1 H Baso % (Auto) 0.2 Absolute Neuts (auto) 2.2 Absolute Lymphs (auto) 1.29 Total Counted Not Reportable Sodium 140 Potassium 3.6 Chloride 105 Carbon Dioxide 27.0 Anion Gap 8 BUN 6 L Creatinine 0.66 Estim Creat Clear Calc 33.92 Est GFR (MDRD) Af Amer 110 Est GFR (MDRD) Non-Af 91 BUN/Creatinine Ratio 9.1 L Glucose 83 Calcium 8.6 Phosphorus 3.6 Magnesium 2.0 Total Bilirubin 0.50 AST 18 ALT 9 L Alkaline Phosphatase 76 Total Protein 6.0 L Albumin 3.3 Globulin 2.7 Albumin/Globulin Ratio 1.2 Vitamin B12 TSH Thyroxine (T4) Free T3 pg/dL Urine Color Urine Clarity Urine pH Ur Specific [place] Urine Protein Urine Glucose (UA) Urine Ketones Urine Occult Blood Urine Nitrite Urine Bilirubin Urine Urobilinogen Ur Leukocyte Esterase Urine RBC Urine WBC Ur Squamous Epith Cells Urine Bacteria Urine Mucus RPR none Operations: None Procedures: None Summary of Care Provided: The patient is an 82-year-old female with a past medical history of dementia, tobacco dependence, personality disorder, CAD, COPD and hypertension who presented to the emergency department at [facility] on 2017 to be placed in a custodial with a dementia wing. Her niece was recently appointed her guardian because she is unable to care for herself and is not competent to make decisions regarding her health care. Vital signs at presentation to the emergency room were temperature 98.6, pulse rate 68, blood pressure 192/84, respiratory rate 16 and she was 96% saturated on room air. Lab was remarkable for a mildly decreased hemoglobin at 11.1 with normochromic normocytic indices and a normal RDW. CT brain showed no acute findings. There were chronic involutional changes. She c/o dysuria following admission and a urine sample was obtained via straight cath. The UA showed 5-10 white blood cells per high-powered field with 0-5 squamous epithelial cells, 2+ bacteria and positive nitrites. She was started on Rocephin 1 GM IV daily and received 2 doses while in the hospital. Urine culture is pending. Lab was done to evaluate her for treatable causes of dementia and the TSH, T4 and T3 were within normal limits. B12 is normal at 250. The RPR was negative and an ammonia was within normal limits. BRODERICK is still pending at the time of discharge. She was quite agitated on 11/15 and would not take her meds or cooperate with nursing. She received a one time dose of Haldol 4 mg IM and she was much more calm. she was started on Seroquel 50 mg at HS and 25 mg Q AM. She slept well on the night of 11/15 and the following morning she was alert and took her medications. BP has been mildly increased but, she had been refusing Metoprolol. She was evaluated on 11/16 for admission to [facility] in [place] and has been accepted. She was discharged on Cefdinir 300 mg BID to complete 7 days of treatment. The urine culture should be available on or 11/18. Home Medications: Medications to take at Discharge Solifenacin Succinate [Vesicare] 10 mg PO DAILY 11/14/17 Acetaminophen [Tylenol Tablet] 650 mg PO Q6H PRN PRN tablet 11/16/17 Cefdinir 300 mg PO BID #10 cap 11/16/17 Metoprolol(XL)Succ [Toprol Xl (Beta Darrion)] 25 mg PO DAILY #1 tablet 11/16/17 Nicotine [Nicoderm] 14 mg TRANSDERM. DAILY patch 11/16/17 Quetiapine Fumarate [Seroquel] 25 mg PO DAILY tablet 11/16/17 Quetiapine Fumarate [Seroquel] 50 mg PO QHS tablet 11/16/17 Following Prescrptions Were Given to Patient: Metoprolol(XL)Succ [Toprol Xl (Beta Darrion)] 25 mg PO DAILY #1 tablet Cefdinir 300 mg PO BID #10 cap Primary Care Physician: Cydney Larkin MD [Primary Care Provider] - Disposition: Acute care Hospital Minutes spent on discharge:: 40 Patient Condition:: Stable Medical Necessity - Tobacco Use Smoking Status: Current every day smoker Tobacco Use: Cigarettes Meaningful Use Info Meaningful Use Diagnoses (Choose all that apply): None applicable Code Visit Inpatient E&M: 69603 Disch Hosp
--- NOTE | 2017-11-16 12:30 | NURSING ---
Report called to Krista [facility].
[2017-11-19 20:08] LABS: ANTINUCLEAR ANTIBODIES DIRECT Positive (Negative); Anti-Centromere B Ab <0.2 AI (0.0-0.9); Anti-Chromatin <0.2 AI (0.0-0.9); Anti-Jo <0.2 AI (0.0-0.9); Anti-Scleroderma-70 AB 0.6 AI (0.0-0.9); RNP Ab <0.2 AI (0.0-0.9); SJOGREN'S Anti-SS-A test < 0.2 AI (0.0-0.9); Smith Ab <0.2 AI (0.0-0.9)
[2017-11-20 11:08] LABS: Anti-dsDNA Ab <1 IU/mL (0-9)
== END 2017-11-16 13:24 | disposition short-term general hospital (02) ==
LOC: ED 19:16 → MS3 20:24
PROVIDERS: Admitting Provider Internal Medicine; Emergency Provider Emergency Medicine; Family Provider Internal Medicine; PCP Internal Medicine; Visit Provider Internal Medicine
DX: G30.9 Alzheimer's disease, unspecified (principal); F02.81 Dementia in other diseases classified elsewhere, unspecified severity, with behavioral disturbance; N30.90 Cystitis, unspecified without hematuria; F60.9 Personality disorder, unspecified; I25.10 Atherosclerotic heart disease of native coronary artery without angina pectoris; J44.9 Chronic obstructive pulmonary disease, unspecified; I10 Essential (primary) hypertension; D64.9 Anemia, unspecified; Z79.899 Other long term (current) drug therapy; F17.210 Nicotine dependence, cigarettes, uncomplicated; N32.81 Overactive bladder; I25.2 Old myocardial infarction
CPT/HCPCS: 36415; 70450; 80048; 80053; 81001; 82607; 83735; 84100; 84436; 84443; 84481; 85025; 85027; 86038; 86225; 86235; 86592; 87086; 87088; 87186; 93005; 96365; 96372; 97162; 97802; 99218; 99284; J7050; A4216; G0378